=== PATIENT | male | born 1980 | race Caucasian/White ===

== ENCOUNTER 2016-05-31 09:24 | Emergency (ER) | payer MEDICAID, OTHER ==
[~2016-05-31] VITALS: Wt 54.6 kg
[2016-05-31] MEDS ORDERED: ALPRAZOLAM 0.25 MG TAB PO ONE (10:30)
--- NOTE | 2016-05-31 11:46 | ERD ---
DATE OF SERVICE: 05/31/2016 HISTORY OF PRESENT ILLNESS: The patient is a 35-year-old male complaining of anxiety after using me th 5 days ago. 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 He states he denies any chest charity n or shortness of breath. He is not hallucinating. He is feeling very anxious and shaky. He denie s any fevers. No vomiting. He has not taken any medications for his symptoms. PAST MEDICAL HISTORY: Denies medical problems. ALLERGIES: NO ALLERGIES TO MEDICATIONS. PAST SURGICAL HISTORY: Colorectal surgery. SOCIAL HISTORY: Denies. REVIEW OF SYSTEMS: A 12-point review of systems was done. Refer to HPI for positives, all other sy stems negative. PHYSICAL EXAMINATION VITAL SIGNS: Temperature is 98.4, pulse 88, blood pressure is 126/76, respiratory rate 21, O2 satur ation 99% on room air. Pain intensity 8/10. GENERAL: The patient is well-appearing, well-nourished, in no acute distress. HEENT: Atraumatic. Conjunctivae are pink. Pupils equal, round, and reactive to light. There is no s cleral icterus. Tympanic membranes clear bilaterally. Oropharynx clear. No nystagmus or photophobia . CHEST: Clear to auscultation bilaterally. There are no rales, wheezes or rhonchi. HEART: Regular rate and rhythm. No murmurs, clicks, rubs or gallops. No S3 or S4. ABDOMEN: Soft, nontender and nondistended. Good bowel sounds. No rebound or guarding. No gross gabrielle tonitis. No gross organomegaly or masses. No Desai sign or McBurney point tenderness. SKIN: There is no apparent rash or petechia. The skin is warm and dry. EMERGENCY ROOM COURSE: The patient was given Xanax in the ER. DIAGNOSES: 1. Adverse reaction to drug use. 2. Anxiety. MEDICAL DECISION MAKING: I have low suspicion for cardiac emergency. The patient is not complainin g of chest pain. The patient's heart sounds are within normal limits and vital signs are stable. DISCHARGE: The patient is discharged stable. The patient was not given a prescription for Xanax as I was concerned about changing the patient from on drug to another and causing dependence. I told the patient to drink adequate amounts of fluids to help flush his system. The patient was told if s ymptoms change or worsen, to return to the ER. All other questions answered at time of discharge. Discharge summary given at the time of departure. The patient understood and complied with plan. Dictated By: MAHIN BLANCA for FLORENCE ABREU/NTS Conf#: [id number] DID#: [id number]
[2016-06-01] MEDS ORDERED: LORA-441 PO (10:57)
== END 2016-05-31 10:38 | disposition home or self-care (01) ==
LOC: FTE 09:24
DX: F41.9 Anxiety disorder, unspecified (principal); T43.625A Adverse effect of amphetamines, initial encounter; F17.210 Nicotine dependence, cigarettes, uncomplicated
CPT/HCPCS: Z7502; Z7610; 99283

== ENCOUNTER 2016-06-01 09:29 | Emergency (ER) | payer MEDICAID ==
[~2016-06-01] VITALS: Wt 55.6 kg
[2016-06-01] MEDS ORDERED: LORAZEPAM 1 MG TAB PO ONE (10:00)
--- NOTE | 2016-06-01 10:47 | RADRPT ---
PROCEDURE: Chest x-ray CLINICAL INDICATION: Chest pain TECHNIQUE: Chest single view COMPARISON: None FINDINGS: The heart is normal in size. The pulmonary vessels are normal in caliber. The lungs are clear. Th e costophrenic angles are sharp. The visualized bony thorax is unremarkable. IMPRESSION: No acute cardiopulmonary disease. RPTAT: HH .Ralf Frederick MD, Date Time Electronically viewed and signed by .Ralf Frederick MD, MD on 06/01/2016 10:47 .W/
[2016-06-01] MEDS ORDERED: LORA-441 PO (10:57)
--- NOTE | 2016-06-01 11:04 | ERD ---
ER Documentation Chief Complaint Date/Time DATE: 06/01/16 TIME: 11:00 Chief Complaint feels shaky and anxious since yesterday. seen in er for same not better HPI This is a 35-year-old male that presents to the ER stating that he feels shaky and anxious. Patient had meth on Monday. Patient was seen here yesterday for anxiety he was given Xanax here in the ER and felt significantly better throughout the day however this morning began to feel shaky and nervous again. Patient does complain of chest pain and some shortness of breath when he starts feeling this way. Chest pain shortness of breath is nonexertional. Patient used to use meth, however he has been clean for the last year up until Monday when he was drinking. She denies any loss of consciousness. He not have a history of any cardiac problems. He denies fevers or chills. He denies cough or cold symptoms. ROS 12 point review of systems was done, all negative except per HPI. Medications Home Meds Active Scripts Lorazepam* (Ativan*) 0.5 Mg Tablet, 0.5 MG PO Q8, #5 TAB Prov:QUINTIN TERRYWOJCIECH Higginbotham 06/01/16 Allergies Allergies: Coded Allergies: No Known Allergy (Unverified , 05/31/16) PMhx/Soc Medical and Surgical Hx: pt denies Medical Hx, pt denies Surgical Hx Hx Alcohol Use: Yes Hx Substance Use: Yes (CRYSTAL METH) Hx Tobacco Use: Yes Smoking Status: Unknown if ever smoked Physical Exam Vitals Vital Signs Date Time Temp Pulse Resp B/P Pulse Ox O2 Delivery O2 Flow Rate FiO2 06/01/16 09:31 97.0 90 20 111/71 100 Physical Exam GENERAL: The patient is well developed and appropriate for usual state of health , in no apparent distress. HEENT: Atraumatic. Conjunctivae are pink. Pupils equal, round, and reactive to light. Extraocular muscles are grossly intact. Bilateral tympanic membranes are clear with no evidence of erythema, effusion or dulling of the light reflex. The oropharynx is clear with no erythema or exudates. NECK: C-spine is soft and supple. There is no cervical lymphadenopathy. CHEST: Clear to auscultation bilaterally. There are no rales, wheezes or rhonchi. HEART: Regular rate and rhythm. No murmurs, clicks, rubs or gallops. ABDOMEN: Soft, nontender and nondistended. Good bowel sounds. No rebound or guarding. No gross peritonitis. No gross organomegaly or masses. No Desai sign or McBurney point tenderness. No pulsatile masses. BACK: No midline or flank tenderness. EXTREMITIES: Equal pulses bilaterally. There is no peripheral clubbing, cyanosis or edema. No focal swelling or erythema. Full range of motion. Grossly neurovascularly intact. NEURO: Alert and oriented. Cranial nerves II through XII are intact. Motor strength in all 4 extremities with 5/5 strength. Sensation grossly intact. Normal speech and gait. SKIN: There is no apparent rash or petechia. The skin is warm and dry. Results 24 hrs Current Medications Medications (Trade) Dose Ordered Sig/[place] Route PRN Reason Start Time Stop Time Status Last Admin Dose Admin Lorazepam (Ativan) 1 mg ONCE ONCE PO 06/01/16 10:00 06/01/16 10:01 DC 06/01/16 09:58 Procedures/MDM Differential diagnosis includes but is not limited to; STEMI, dissection, pneumothorax, PE, esophageal rupture, tamponade, pneumonia, pericarditis, GERD, musculoskeletal, endocarditis, anxiety. At this time this is likely anxiety secondary to drug use. EKG was taken and read by Dr. May [address] elevation no t wave inversion. Patient x-ray was normal. Suspicion for acute cardiac etiology is low. Patient is to follow-up with his primary care doctor within 1-2 days or return to ER sooner if symptoms worsen. He was advised to stop taking meth. Patient understands and agrees with plan. Departure Diagnosis: Primary Impression: Anxiety Condition: Stable Patient Instructions: Anxiety Reaction Additional Instructions: Call your primary care doctor TOMORROW for an appointment during the next 1-2 days.See the doctor sooner or return here if your condition worsens before your appointment time. LILIA TERRY Jun 01, 2016 11:04
== END 2016-06-01 11:10 | disposition home or self-care (01) ==
LOC: FTE 09:29
DX: F41.9 Anxiety disorder, unspecified (principal); R06.02 Shortness of breath
CPT/HCPCS: 71010; 93005; Z7502; Z7610